=== PATIENT | male | born 1960 | race Caucasian/White ===

== ENCOUNTER → 2016-12-02 | Outpatient (CLI) | payer OTHER ==
--- NOTE | 2016-12-02 19:28 | DI ---
PA /LATERAL CHEST X-RAY, 12/02/2016 12:28 PM : Clinical History: Bronchitis after surgery. Previous Exam: None at this facility. There is no acute soft tissue or bony abnormality. Heart size is normal. Lungs are clear. Mediastinal structures are normal. There are no pulmonary nodules. Reading: Normal chest x-ray.
== END ==
LOC: MOB RAD 12:30
DX: J40 Bronchitis, not specified as acute or chronic (principal)
CPT/HCPCS: 71020

== ENCOUNTER 2018-11-11 12:31 | Observation (INO) ==
[2018-11-11] MEDS ORDERED: IPRATROPIUM/ALBUTEROL SULFATE 3 ML NEB NEB ONE (12:56)
[2018-11-11] MEDS ORDERED: Sodium Chloride 0.9% 1,000 ML PRIMARY IV ONE (12:56)
[2018-11-11 13:20] LABS: Hematocrit [HCT] 46.5 % (42.0-52.0); Hemoglobin [HGB] 15.7 g/dL (14.0-18.0); MEAN CORPUSCULAR HEMOGLOBIN 29.7 PG (27-31); MEAN CORPUSCULAR HGB CONC 33.8 g/dL (33-37); MEAN CORPUSCULAR VOLUME 88.1 FL (80-90); MEAN PLATELET VOLUME 8.4 FL (7.4-12.2); RED BLOOD COUNT 5.28 10^6/uL (4.70-6.10)
--- NOTE | 2018-11-11 13:23 | EKG ---
[address] [address] Measurements Intervals [place] Rate: 58 P: 27 WV: 142 QRS: 2 QRSD: 93 T: 33 QT: 389 QTc: 385 Interpretive Statements SINUS BRADYCARDIA RIGHT VENTRICULAR CONDUCTION DELAY Compared to ECG 09/27/2018 14:57:58 Sinus rhythm no longer present Electronically Signed On 11-11-18 14:19:21 MST by Rudy London [email or web address]
[2018-11-11 13:35] LABS: SERUM ALBUMIN 3.5 g/dL (3.5-4.8)
[2018-11-11 13:59] LABS: BAND NEUTROPHILS % 6 % (0-10); BASOPHILS % (MANUAL) 0 % (0-1); EOSINOPHILS % (MANUAL) 0 % (0-8); MONOCYTES % (MANUAL) 18 % (0-12); NEUTROPHILS % (MANUAL) 44 % (50-80)
[2018-11-11 14:00] LABS: PLATELET MORPHOLOGY COMMENT SEE COMMENTS (NORM); RBC MORPHOLOGY COMMENT NORMAL MORPHOLOGY (NORM); WBC MORPHOLOGY COMMENT SEE COMMENTS (NORM)
[2018-11-11 14:04] LABS: BLOOD UREA NITROGEN 27 mg/dL (7-22); BUN/CREATININE RATIO 38.57 (6-20)
[2018-11-11 14:18] LABS: BILIRUBIN,URINE NEGATIVE (NEG); CLARITY,URINE CLEAR (CLEAR); COLOR,URINE YELLOW (Y); GLUCOSE, URINE (UA) NEGATIVE (NEG); OCCULT BLOOD,URINE NEGATIVE (NEG); PH,URINE 5.5 (5.0-8.5); PROTEIN,URINE NEGATIVE (NEG)
[2018-11-11 14:19] LABS: URINE SAMPLE TYPE CLEAN CATCH URINE
--- NOTE | 2018-11-11 14:32 | DI ---
XR CXR 2VW PA/LAT,11/11/2018 12:56 PM: Clinical History: New cough and dyspnea. Previous Exam: September 24, 2018 Findings: PA and lateral views of the chest are obtained, and demonstrate new elevation of left hemidiaphragm n ot seen on the prior exam. There is no pneumothorax. The cardiomediastinum appears essentially stable. Impression: Interval elevation of the left hemidiaphragm worrisome in a patient with cancer for phrenic nerve inv olvement. Consider dedicated CT chest.
--- NOTE | 2018-11-11 16:37 | PDOC ---
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 After that he was supposed to start chemotherapy therapy. Based on the description it sounded like he had only radiation treatment to the brain and not to the chest yet. Last week he started to have cough, shortness of breath with phlegm production green no blood. There is occasional wheeze according to the . Because of all the symptoms he was brought to the ER. Apparently his oncologist did try Ceftin first then he switched him to nitrofurantoin. He came into the ER was given breathing treatment and the fluid and was admitted. He's not sure whether the treatment that he got in the ER made a difference yet. He thinks mostly the oxygen that helped him. Past Medical History Medical History: 1. Metastasis to the brain, squamous cell carcinoma with primary being the lung, had surgery with removal of the cerebellar tumor currently undergoing radiation treatment to the brain. The supposed to start chemotherapy therapy in 2 weeks after he is done with radiation treatment. Surgical History: 1. Removal of metastatic cerebellar tumor done in September Family History: Reviewed an Not Pertinent Past Social History: He used to chew, then he used E cigarettes for 2 years, rarely drinks more drugs. Tobacco Use: Former Smoker In the Past 12 Months, Have Used or Abuse Any of the Following Substance: None Alcohol Use: Rarely Medication / Allergies Home Medications: Home Medications Medication Instructions Recorded Confirmed Type hydrocodone 5 mg-acetaminophen 325 2 tab PO Q4-6H PRN #120 tab 10/18/18 11/11/18 Rx mg tablet Dexamethasone [Decadron] 4 mg PO BID 11/11/18 11/11/18 History Nitrofurantoin Monohyd/M-Cryst 100 mg PO BID 11/11/18 11/11/18 History [Macrobid 100 mg Capsule] Allergies/Adverse Reactions: Allergies Allergy/AdvReac Type Severity Reaction Status Date / Time tramadol Allergy Hives Verified 11/11/18 17:19 Exam - Vitals Vital Signs: Vital Signs Temperature 97.7 F Temperature Source Temporal Artery Scan Pulse Rate [Bilateral Radial] 64 Pulse Rate 78 Respiratory Rate 18 Blood Pressure [Left Arm] 123/86 Pulse Ox 100 Oxygen Delivery Method Room Air Height 5 ft 11 in Weight 158 lb - General General Appearance: No Acute Distress - Head Head Exam: Normal Inspection - Eye Eye Exam: POSITIVE: Normal Appearance - ENT ENT Exam: POSITIVE: Normal Exam - Neck Neck Exam: Normal Inspection - Respiratory Respiratory Exam: POSITIVE: Clear to Auscultation - Bilaterally - Cardiovascular Cardiovascular Exam: POSITIVE: RRR - GI/Abdominal GI/Abdominal Exam: POSITIVE: Normal Bowel Sounds, Non Tender, Non Distended, Soft, No Organomegaly - Rectal Rectal Exam: POSITIVE: Deferred - External Exam: POSITIVE: Deferred Exam: POSITIVE: Deferred - Extremities Extremities Exam: POSITIVE: Normal Inspection - Back Back Exam: POSITIVE: Normal Inspection - Neurological Neurological Exam: POSITIVE: Alert, Oriented x 3, CN II-XII Intact, No Facial Droop, Speech Intact / Clear, Moves All Extremities Equally - Psychiatric Psychiatric Exam: POSITIVE: Normal Affect - Integumentary Integumentary Exam: POSITIVE: Normal Color Results - Labs CBC and BMP: 11/11/18 13:10 11/11/18 13:10 - EKG Data -: EKG Interpreted by Me Rate: Bradycardia EKG Shows Normal: Sinus Rhythm - EKG Data When Compared to Previous EKG(s) There Are: Other (Sinus bradycardia.) Assessment and Plan - Patient Problems (1) Shortness of breath Current Visit: Yes Status: Acute Comment: This may be a result of her underlying cancer itself causing phrenic nerve paralysis, in addition to some element of bronchitis. I did tell him we'll do a CAT scan of his chest looking to see if there is any pneumonia if not then will treat him as possible COPD exacerbation but there is no guarantee that this will work this may may be a result of the cancer itself, I did explain that to him and his . In addition to the oxygen will put him on breathing violeta tment and will give him a dosage of steroid IV. He is on nitrofurantoin I think will switch it to Zithromax. 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 We'll try to speak with oncology tomorrow. Code(s): C79.31 - Secondary malignant neoplasm of brain
[2018-11-11] MEDS ORDERED: HYDROcodone-APAP 5 MG -325 MG TABLET PO PRN (17:19)
[2018-11-11] MEDS ORDERED: ALBUTEROL SULFATE 2.5 MG/3 ML NEB PRN (17:23)
[2018-11-11] MEDS ORDERED: LIDOCAINE W/ SODIUM BICARB 0.5 ML SYR SUBD PRN (17:23)
[2018-11-11] MEDS: methylPREDNISolone 125 MG/2 ML VIAL IVP SCH (18:58)
[2018-11-11] MEDS: IPRATROPIUM/ALBUTEROL SULFATE 3 ML NEB NEB SCH (19:17)
--- NOTE | 2018-11-11 19:46 | DI ---
CT CTA Chest Non-Coronary O 11/11/2018 5:17 PM History: [facility] ^shortness of breath, history of lung cancer Comparison: Chest x-ray from earlier the same day. Procedure: CT angiography of the pulmonary arteries was performed after the administration of 65 mL o f Isovue intravenous contrast. Findings: There is normal opacification of the pulmonary arteries with no evidence of filling defect. Evaluation of the lungs demonstrates an irregular lobulated mass in the anteromedial left lung. The m ass is peripherally located with local extension into the anterior mediastinum versus lymphadenopathy . The mass abuts the aortic arch, as well as the main and left main pulmonary arteries. There is no e ndobronchial lesion. There is elevation of the left hemidiaphragm with left lung base atelectasis, co ncerning for phrenic nerve compromise. Patchy areas of groundglass opacity are noted bilaterally. As well as anterior and superior lymphadenopathy, there are also enlarged supraclavicular lymph nodes . Additionally, there are enlarged right hilar lymph nodes. The aorta and branch vessels demonstrate normal course and caliber. Heart size is within normal limits with no pericardial effusion. There are atheromatous coronary artery calcifications. The thyroid exhibits normal CT morphology. The visualized upper abdominal structures are notable for lobular contour and thickening of the bilat eral adrenal glands. Cystic lesions in the left renal pelvis are favored to represent calyceal divert icula versus parapelvic cysts. The osseous structures are normal for age with multilevel degenerative endplate changes. There is no evidence of acute or healing rib fractures. There is mild bilateral gynecomastia. Impression: 1. No main or segmental pulmonary embolism. 2. Lobulated peripherally oriented left anteromedial lung mass with mediastinal extension versus lymp hadenopathy. 3. Patchy bilateral areas of groundglass attenuation. This is a nonspecific finding with a broad diff erential that includes atypical infection, hypersensitivity pneumonitis, and pulmonary edema in the a cute setting. Metastatic disease cannot be excluded. Clinical correlation is recommended with followu p 6 weeks following completion of therapy in order to to ensure resolution. 4. Anterior/superior mediastinal, right hilar, and supraclavicular lymphadenopathy. 5. Elevation of the left hemidiaphragm with left lung base atelectasis, concerning for phrenic nerve compromise. 6. Lobular contour and thickening of the bilateral adrenal glands, concerning for metastatic disease.
[2018-11-11] MEDS ORDERED: cefTRIAXone Inj 1 GM in Sodium Chloride 0.9% 100 ML IV SCH (20:00)
[2018-11-11] MEDS: Dexamethasone Tab 4 MG TABLET PO SCH (20:47)
[2018-11-12] MEDS: methylPREDNISolone 125 MG/2 ML VIAL IVP SCH ×2 (00:25→05:24)
--- NOTE | 2018-11-12 01:31 | PDOC ---
General Adult HPI - General Chief Complaint: Dyspnea Stated Complaint: weakness/cough/dyspnea Date Seen by Provider: 11/11/18 Time Seen by Provider: 12:45 Source: POSITIVE: Patient, Spouse, Old records Exam Limitations: POSITIVE: No limitations Nurse's Notes Reviewed & Considered: Yes - History of Present Illness Initial Comment: The patient is a 58-year-old male. He is brought to the emergency room by his father and his . Patient was recently diagnosed with lung cancer metastatic to the brain. This diagnosis was made last month. He has had neurosurgical procedures to remove some of the brain metastases. He has been receiving radiation therapy to his head for the last 3 weeks. Patient was seen by his radiation therapist in [place], Dr. Casey, earlier today. For several days the patient is had some cough and hoarseness. He's had progressive weakness and states he's had weight loss. Patient was advised by his radiation oncologist to come to the emergency room for evaluation. Patient recently completed a course of azithromycin, which was prescribed for him by his oncologist. No known fevers or chills. No head, chest or abdominal pain. No hemoptysis. He states he is somewhat short of breath. No pleuritic chest pain. No nausea, vomiting or diarrhea. Have you received a tetanus shot in the past 10 years?: Yes Body Location Affected: REPORTS: Chest Timing: REPORTS: Gradual, Getting Worse Duration: >1 week Severity: Moderate Quality: REPORTS: Other (Patient denies any pain anywhere) Context: REPORTS: Other (As above) Modifying Factors: improves with: Nothing Similar Symptoms Previously: No Recent Care Received: REPORTS: Recently Seen, Treated by MD (As above) Any Prior Injuries Related to Current Complaint?: No - Patient Home Medications Home Medications: Home Medications hydrocodone 5 mg-acetaminophen 325 mg tablet 2 tab PO Q4-6H PRN #120 tab 10/18/18 Dexamethasone [Decadron] 4 mg PO BID 11/11/18 Nitrofurantoin Monohyd/M-Cryst [Macrobid 100 mg Capsule] 100 mg PO BID 11/11/18 - Patient Allergies Allergies/Adverse Reactions: Allergies Allergy/AdvReac Type Severity Reaction Status Date / Time tramadol Allergy Hives Verified 11/11/18 17:19 Past Medical History - heen HEENT History: Denies History Cardiovascular History: Denies History Respiratory History: Shortness of Breath, Other (please comment) Additional Respiratory History: LUNG CANCER Gastrointestinal History: GERD Genitourinary History: Denies History Endocrine History: Denies History Musculoskeletal History: Back Injury, Osteoarthritis Prosthesis or Implant: No Additional Musculoskeletal History: PT STATES THAT HE BROKE HIS BACK NEARLY 30 YEARS AGO Neurological History: Denies History Blood Disorders: Denies History Psychiatric History: Denies History Male Reproductive History: Denies History Cancer History: Lung, Brain, Other (please comment) Cancer Treatment / Date(s) of Treatment: 2017- PRESENT In Past Year Been Physically Harmed or Verbally Threatened: No History of MDRO: No Tobacco Use: Former Smoker Type of alcohol normally used: Beer In the Past 12 Months, Have Used or Abuse Any Substance: None Previous Surgical History: Yes Type / Date of Surgery: PT STATES HE HAS HAD VARIOUS ORTHOPEDIC SURGERIES ON HIS HANDS AND ARMS. Anesthesia Reactions: No Malignant Hyperthermia: No Family History of Malignant Hyperthermia: No Significant Family History: No pertinent family hx Past Medical History Reviewed: Reviewed - No Changes ROS - Limitations ROS Limitations: No Limitations Constitution: REPORTS: Weakness Cardiovascular: REPORTS: Denies Cardiac Symptoms Respiratory: REPORTS: Cough Productive, Shortness Of Breath Neurological: REPORTS: Denies Neuro Symptoms Gastrointestinal: REPORTS: Denies GI Symptoms Endocrine: REPORTS: Denies Symptoms Musculoskeletal: REPORTS: Denies MS Symptoms Genitourinary: REPORTS: Denies Symptoms Eyes: REPORTS: Denies Symptoms ENT: REPORTS: Denies Symptoms Skin: REPORTS: Denies Skin Symptoms Lympathic: REPORTS: Denies Lympathic Symptoms Immunologic: POSITIVE: Denies Symptoms Psychiatric: POSITIVE: Denies Psych Symptoms General Adult Exam - General Appearance General Appearance: POSITIVE: Alert, Cooperative, No Acute Distress, No Evidence of Trauma - HEENT HEENT: POSITIVE: Head Inspection Nml, Eyes Inspection Nml, Ears Inspection Nml, Nose Inspection Nml, Oral/Dental Inspect. Nml, Pharynx Inspect. Nml, PERRL, EOMI - Pupils Pupil Size: 3 mm: Bilateral (PERRLA) - Neck Neck: POSITIVE: Normal Inspection, Thyroid Normal - Respiratory Respiratory: POSITIVE: No Respiratory Distress, Chest Non-Tender, Rhonchi. NEGATIVE: Breath Sounds Normal (Scattered rhonchi) - Cardiovascular Cardiovascular: POSITIVE: Regular Rate & Rhythm, No Murmur, No Gallop, PMI Normal Peripheral Pulses: Radial (R): 2+, Radial (L): 2+ - Abdomen Abdomen: Soft: (All Quadrants), Normal Bowel Sounds: (All Quadrants), Denies Tenderness: (All Quadrants), No Splenomegaly: (All Quadrants), No Hepatomegaly: (All Quadrants), No Guarding: (All Quadrants), No Rebound: (All Quadrants), No Palpable Pulse: (All Quadrants), No Palpabale Mass: (All Quadrants), No Distention: (All Quadrants), No Rigidity: (All Quadrants) - Back Back: POSITIVE: Normal Inspection - Skin Skin: POSITIVE: Normal Color, Warm, Dry, No Rash - Extremities Extremity: Non-Tender: (All Extremities), Normal ROM: (All Extremities), Normal Inspection: (All Extremities) - Neurological / Psychological Neurological: POSITIVE: Affect Apporpriate, Oriented X3, fisher hoop net Normal As Tested, Motor Normal, Sensation Normal General Adult Progress - Results Reviewed by me Xrays/CTs/US Reviewed by me: Yes Discussed with Radiologist: Yes Radiology Findings: No definite infiltrates. Interval elevation of left hemidiaphragm. Lab Results Reviewed by Me: Yes Lab Results:: Laboratory Results 11/11/18 11/11/18 11/11/18 12:57 12:57 13:10 WBC RBC Hgb Hct MCV MCH MCHC RDW Std Deviation RDW Coeff of Leigh Plt Count MPV Neutrophils % (Manual) Band Neutrophils % Lymphocytes % (Manual) Monocytes % (Manual) Eosinophils % (Manual) Basophils % (Manual) Metamyelocytes % Myelocytes % Promyelocytes % Blast Cells WBC Morphology Comment Plt Morphology Comment RBC Morph Comment D-Dimer Sodium Potassium Chloride Carbon Dioxide Anion Gap BUN Creatinine Estimated GFR BUN/Creatinine Ratio Glucose Calculated Osmolality Calcium Total Bilirubin AST ALT Alkaline Phosphatase Troponin I < 0.012 C-Reactive Protein 1.4 H NT-Pro-B Natriuret Pep 87.3 94.0 Total Protein Albumin Globulin Albumin/Globulin Ratio Ur Collection Type Urine Color Urine Clarity Urine pH Ur Specific [place] Urine Protein Urine Glucose (UA) Urine Ketones Urine Occult Blood Urine Nitrate Urine Bilirubin Urine Urobilinogen Ur Leukocyte Esterase Ur Culture Indicated? 11/11/18 11/11/18 11/11/18 13:10 13:10 13:10 WBC 11.92 H RBC 5.28 Hgb 15.7 Hct 46.5 MCV 88.1 MCH 29.7 MCHC 33.8 RDW Std Deviation 52.2 H RDW Coeff of Leigh 16.5 H Plt Count 231 MPV 8.4 Neutrophils % (Manual) 44 L Band Neutrophils % 6 Lymphocytes % (Manual) 32 Monocytes % (Manual) 18 H Eosinophils % (Manual) 0 Basophils % (Manual) 0 Metamyelocytes % Not Reportable Myelocytes % Not Reportable Promyelocytes % Not Reportable Blast Cells Not Reportable WBC Morphology Comment See comments Plt Morphology Comment See comments RBC Morph Comment Normal morphology D-Dimer 0.56 Sodium 137 Potassium 4.7 Chloride 103 Carbon Dioxide 27 Anion Gap 7 BUN 27 H Creatinine 0.7 Estimated GFR > 60 BUN/Creatinine Ratio 38.57 H Glucose 86 Calculated Osmolality 287.0 Calcium 9.1 Total Bilirubin 0.9 AST 19 L ALT 54 Alkaline Phosphatase 69 Troponin I C-Reactive Protein NT-Pro-B Natriuret Pep Total Protein 6.0 L Albumin 3.5 Globulin 2.5 Albumin/Globulin Ratio 1.40 Ur Collection Type Urine Color Urine Clarity Urine pH Ur Specific [place] Urine Protein Urine Glucose (UA) Urine Ketones Urine Occult Blood Urine Nitrate Urine Bilirubin Urine Urobilinogen Ur Leukocyte Esterase Ur Culture Indicated? 11/11/18 14:11 WBC RBC Hgb Hct MCV MCH MCHC RDW Std Deviation RDW Coeff of Leigh Plt Count MPV Neutrophils % (Manual) Band Neutrophils % Lymphocytes % (Manual) Monocytes % (Manual) Eosinophils % (Manual) Basophils % (Manual) Metamyelocytes % Myelocytes % Promyelocytes % Blast Cells WBC Morphology Comment Plt Morphology Comment RBC Morph Comment D-Dimer Sodium Potassium Chloride Carbon Dioxide Anion Gap BUN Creatinine Estimated GFR BUN/Creatinine Ratio Glucose Calculated Osmolality Calcium Total Bilirubin AST ALT Alkaline Phosphatase Troponin I C-Reactive Protein NT-Pro-B Natriuret Pep Total Protein Albumin Globulin Albumin/Globulin Ratio Ur Collection Type Clean catch urine Urine Color Yellow Urine Clarity Clear Urine pH 5.5 Ur Specific [place] 1.015 Urine Protein Negative Urine Glucose (UA) Negative Urine Ketones Negative Urine Occult Blood Negative Urine Nitrate Negative Urine Bilirubin Negative Urine Urobilinogen 1.0 Ur Leukocyte Esterase Negative Ur Culture Indicated? Culture not set CBC and BMP: 11/11/18 13:10 11/11/18 13:10 EKG Interpreted/Reviewed By Me:: Yes (normal) EKG Interpretation:: POSITIVE: Normal Sinus Rhythm, Normal Rate, Normal Intervals, Normal [place], Normal QRS, Normal ST/T - Patient's Progress Pain Medication Addressed: POSITIVE: Not Applicable School/Work Release Addressed: POSITIVE: Not Applicable Re-Examine Time: 15:35 Re-Examine Comment: Patient was given a nebulizer treatment with DuoNeb. Results of chest x-ray and electrocardiogram and laboratory tests discussed with patient and family. Patient is admitted for observation and hydration and further evaluation. Status: POSITIVE: Improved, Re-Examined (Patient feels subjectively better after receiving a liter of normal saline and a DuoNeb nebulizer treatment) Antibiotics Given: No - Consult Consult (If Yes, Name of Consulting MD & Time Called): Yes (Dr. Harmon, hosp italist, [id number]) Consulting MD will see pt:: POSITIVE: [facility] [place] [place] Admit Counseled: POSITIVE: Patient, Family, RE: Lab Results, RE: Radiology Results, RE: DX, RE: Need for F/U Patient Care Time - Estimated PCT Patient Care Time (In Minutes): 60 Vital Signs - VS Reviewed Vital Signs Reviewed: Yes Discharge Clinical Impression: Cough, Lung cancer metastatic to brain, Weakness generalized, Shortness of breath Discharge Disposition: Admit to Observation Condition: Fair Date Decision to Admit to Inpatient: 11/11/18 Time Decision to Admit to Inpatient: 15:35
[2018-11-12] MEDS: IPRATROPIUM/ALBUTEROL SULFATE 3 ML NEB NEB SCH ×2 (03:08→07:46)
[2018-11-12] MEDS ORDERED: PANTOPRAZOLE 40 MG TABLET PO SCH (07:00)
[2018-11-12 07:31] VITALS: BP 125/81; TEMP 97
[2018-11-12 07:48] VITALS: RESP 20
[2018-11-12] MEDS ORDERED: IPRATROPIUM/ALBUTEROL SULFATE 3 ML NEB NEB PRN (08:19)
--- NOTE | 2018-11-12 08:44 | DCSUMMARY ---
Hospitalization Summary Admit Date: 11/11/2018 Discharge Date: 11/12/18 Hospital Course: Discharge diagnoses 1. 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 RSV infection, ricci virus infection 3. History of Surgery for removal of for brain tumor in September 2018 4. Patchy bilateral areas of groundglass attenuation nonspecific possibly secondary to viral infection. 5. Elevation of the left hemidiaphragm likely secondary to phrenic nerve invo lvement by the tumor Hospital course This is a 58 years old male who was diagnosed last month with metastasis to the brain that proved to be squamous carcinoma with a primary being lung tumor, he had surgery for cerebellar tumor removal and he started radiation treatment in [place] about 3 weeks ago he needs to continue for about 2 more weeks. After that he is suppose to start chemotherapy. He came into the hospital because of cough, shortness of breath with phlegm production that started a week ago. There is no blood. There is occasional wheeze according to the . Because of all the symptoms he was brought to the ER. His oncologist tried Ceftin but then he had a rash so that was switched to nitrofurantoin. In the ER he was given fluids, breathing treatment and was admitted. We did a CT of his chest which showed no PE, Lobulated peripherally oriented left anteromedial mediastinal lung mass with mediastinal extension versus lymphadenopathy, patchy areas of groundglass attenuation nonspecific. Elevation of the left hemidiaphragm with left lung base atelectasis concern for phrenic nerve compromise, thickening of the bilateral adrenal gland. Respiratory panel showed positive test for RSV virus and the ricci virus. We put him on a breathing treatment, steroid and antibiotic for possible secondary bacterial infection. The next day he seems to be stable may be a little bit better. I did try to reach Dr. Casey however he is not at the office I spoke with his nurse and left my information. She did say that he is only getting radiation treatment to the brain and not to the chest yet. I think we'll discharge him home will give him a few days additional of Zithromax and tapering dose of prednisone. I did tell him I don't think there is additional benefit of him staying here in the hospital. He needs to get his treatment for his cancer. I did explain that to him to the and they are in agreement. Patient did qualify for oxygen and I did talk to him about the breathing treatment however he did not find those useful. Discharge instruction Diet regular Activity as tolerated Medications Current Medication(s) Medication Instructions Recorded Confirmed Type hydrocodone 5 mg-acetaminophen 325 2 tab PO Q4-6H PRN #120 tab 10/18/18 11/11/18 Rx mg tablet Dexamethasone [Decadron] 4 mg PO BID 11/11/18 11/11/18 History Azithromycin [Zithromax] 250 mg PO DAILY #4 tab 11/12/18 Rx Lansoprazole 30 mg PO DAILY #10 capsule. 11/12/18 Rx predniSONE Tab [Deltasone Tab] 10 mg PO DAILY #16 tab 11/12/18 Rx Follow-up with PCP 1-2 weeks, follow-up with the oncology tomorrow. Condition at discharge was stable for discharge Exam - Vitals Vital Signs: Vital Signs Temperature 97 F Temperature Source Temporal Artery Scan Pulse Rate [Pulse Oximeter] 95 Pulse Rate [Bilateral Radial] 61 Pulse Rate 82 Respiratory Rate 20 Blood Pressure [Right Arm] 125/81 Blood Pressure [Left Arm] 106/61 Pulse Ox 100 Oxygen Flow Rate .5 Oxygen Delivery Method Nasal Cannula Height 5 ft 11 in Weight 149 lb 9.6 oz - General General Appearance: No Acute Distress, Cooperative - Head Head Exam: Normal Inspection - Eye Eye Exam: POSITIVE: Normal Appearance - ENT ENT Exam: POSITIVE: Normal Exam - Neck Neck Exam: Normal Inspection - Respiratory Respiratory Exam: POSITIVE: Clear to Auscultation - Bilaterally - Cardiovascular Cardiovascular Exam: POSITIVE: RRR - GI/Abdominal GI/Abdominal Exam: POSITIVE: Normal Bowel Sounds, Non Tender, Non Distended, Soft - Rectal Rectal Exam: POSITIVE: Deferred - External Exam: POSITIVE: Deferred Exam: POSITIVE: Deferred - Extremities Extremities Exam: POSITIVE: Normal Inspection - Back Back Exam: POSITIVE: Normal Inspection - Neurological Neurological Exam: POSITIVE: Alert, Oriented x 3, CN II-XII Intact, No Facial Droop, Speech Intact / Clear - Psychiatric Psychiatric Exam: POSITIVE: Normal Affect Patient Problems - Patient Problem List (1) Shortness of breath Current Visit: Yes Status: Acute Code(s): R06.02 - Shortness of breath Category: Medical (2) 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
[2018-11-12 09:17] VITALS: O2SAT 94
[2018-11-12] MEDS: Dexamethasone Tab 4 MG TABLET PO SCH (09:59)
== END 2018-11-12 11:30 | disposition home or self-care (01) ==
LOC: MED/SURG 12:31 → ER 12:31 → MED/SURG 16:35
PROVIDERS: ADMIT Internal Medicine; ATTEND Internal Medicine

== ENCOUNTER 2019-05-12 15:37 | Observation (INO) ==
--- NOTE | 2019-05-12 16:56 | PDOC ---
Altered Mental Status HPI - General Chief Complaint: Altered Mental Status Stated Complaint: mental status changes Date Seen by Provider: 05/12/19 Time Seen by Provider: 16:47 Source: POSITIVE: Patient, Spouse, RN/MD Exam Limitations: POSITIVE: Clinical condition Nurse's Notes Reviewed & Considered: Yes - History of Present Illness Initial Comments: This is a well-developed, well-nourished, 58-year-old male, who presents today with altered mental status. I received a call earlier today from Mrs. Marci Leal, physician's senior administrative assistant for [facility] oncology, who provided much of the information I have available on this patient. Patient was initially diagnosed with brain cancer in October 2018 and at the same time developed bilateral pulmonary embolism. 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 He has received 2 cycles of Keytruda. His CEA has increased from 15-75 in the last month. He now has confusion, is alert only to person not place or time, and has become increasingly aggressive with his behavior particularly toward his caregiver at home who is his . This is a complete departure from normal for him with his stating he is normally very easy going and gentle. Timing: REPORTS: Gradual, Getting Worse Duration: Unknown Severity: Severe Character of AMS: REPORTS: Disoriented, Confused, Aggitated Context: REPORTS: Other (Squamous cell carcinoma of the lung with metastatic disease to the brain) Patient Normals: REPORTS: Confused, Poor Alertness, Disoriented to Time, Disoriented to Place, Walks Without Assist Similar Symptoms Previously: No Recent Care Received: REPORTS: Recently Seen, Treated by MD Any Prior Injuries Related to Current Complaint?: No - Patient Home Medications Home Medications: Home Medications Dexamethasone [Decadron] 2 mg PO DAILY 11/11/18 Apixaban [Eliquis] 5 mg PO BID 05/12/19 Megestrol Acetate 40 mg PO BID 05/12/19 Pembrolizumab [Keytruda] 200 mg IV .[id number] 05/12/19 Venlafaxine HCl ER [Effexor Xr] 75 mg PO DAILY 05/12/19 Zolpidem Tartrate [Ambien] 10 mg PO BEDTIME 05/12/19 oxyCODONE ER Tab [OxyCONTIN Tab] 10 mg PO QID PRN 05/12/19 - Patient Allergies Allergies/Adverse Reactions: Allergies Allergy/AdvReac Type Severity Reaction Status Date / Time tramadol Allergy Hives Verified 05/12/19 15:42 Past Medical History - heen HEENT History: Denies History Cardiovascular History: Denies History Respiratory History: Shortness of Breath, Home Oxygen Use, Other (please comment) Additional Respiratory History: LUNG CANCER, On 1.5LPM n/c O2 at home. Gastrointestinal History: GERD Genitourinary History: Denies History Endocrine History: Denies History Musculoskeletal History: Back Injury, Osteoarthritis Prosthesis or Implant: No Additional Musculoskeletal History: PT STATES THAT HE BROKE HIS BACK NEARLY 30 YEARS AGO Neurological History: Other (please comment) Additional Neurological History: Tumors in brain, truman lung ca. HEADACHES Blood Disorders: Denies History Psychiatric History: Depression History of Sexually Transmitted Diseases: No Cancer History: Lung, Brain, Other (please comment) Cancer Treatment / Date(s) of Treatment: 2017- PRESENT In Past Year Been Physically Harmed or Verbally Threatened: No History of MDRO: No Tobacco Use: Former Smoker In the Past 12 Months, Have Used or Abuse Any Substance: None Previous Surgical History: Yes Type / Date of Surgery: PT STATES HE HAS HAD VARIOUS ORTHOPEDIC SURGERIES ON HIS HANDS AND ARMS/CRANIOTOMY/VASECTOMY Anesthesia Reactions: No Malignant Hyperthermia: No Significant Family History: No pertinent family hx ROS - Limitations ROS Limitations: Clinical Condition (Due to the patient's altered mental status further review of systems is unavailable.) Altered Mental Physical Exam - General Appearance General Appearance: POSITIVE: No Acute Distress, No Evidence of Trauma - HEENT HEENT: POSITIVE: Head Inspection Nml, Eyes Inspection Nml, Ears Inspection Nml, Nose Inspection Nml, Oral/Dental Inspect. Nml, Pharynx Inspect. Nml, PERRL, EOMI - Pupil Size Pupil Size: 4 mm: Bilateral - Neuro/Psych Neurological: POSITIVE: Confusion Cranial Nerves: POSITIVE: Normal As Tested, No Evidence of Acute CVA Cerebellar: POSITIVE: Normal As Tested Peripheral Exam: POSITIVE: No Motor Deficits, No Sensory Deficits, Reflexes Normal Reflexes: Patellar (R): 4+, Patellar (L): 4+, Radial (R): 4+, Radial (L): 4+ - Neck Neck: POSITIVE: Supple, Non Tender - Respiratory Respiratory: POSITIVE: No Respiratory Distress, Breath Sounds Normal - Cardiovascular CVS: POSITIVE: Regular Rate and Rhythm, Heart Sounds Normal Peripheral Pulses: Radial (R): 4+, Radial (L): 4+ - Abdomen Abdomen: Soft: (All Quadrants), Normal Bowel Sounds: (All Quadrants), Denies Tenderness: (All Quadrants), No Splenomegaly: (All Quadrants), No Hepatomegaly: (All Quadrants), No Guarding: (All Quadrants), No Rebound: (All Quadrants), No Palpable Pulse: (All Quadrants), No Palpabale Mass: (All Quadrants), No Distention: (All Quadrants), No Rigidity: (All Quadrants) - Skin Skin: POSITIVE: Normal for Race, No Rash, Warm, Dry - Extremities Extremity: Non-Tender: (All Extremities), Normal ROM: (All Extremities), Normal Inspection: (All Extremities), Pelvis Stable: (All Extremities) Altered Mental Status - Results Reviewed By Me Xrays/CTs/US Reviewed: Yes Discussed with Radiologist: Yes Lab Results Reviewed by Me: Yes CBC and BMP: 05/12/19 16:22 05/12/19 16:22 Lab Results:: Laboratory Results 05/12/19 05/12/19 05/12/19 16:22 16:22 16:22 WBC 9.38 RBC 3.70 L Hgb 12.3 L Hct 36.9 L MCV 99.7 H MCH 33.2 H MCHC 33.3 RDW Std Deviation 49.6 RDW Coeff of Leigh 13.8 Plt Count 324 MPV 9.2 Immature Gran % (Auto) 0.3 Neut % (Auto) 78.8 Lymph % (Auto) 14.2 Emmons % (Auto) 6.5 Eos % (Auto) 0.1 Baso % (Auto) 0.1 Immature Gran # (Auto) 0.03 Neut # (Auto) 7.39 Lymph # (Auto) 1.33 Emmons # (Auto) 0.61 Eos # (Auto) 0.01 Baso # (Auto) 0.01 WBC Morphology Comment Normal morphology Plt Morphology Comment Normal morphology RBC Morph Comment Normal morphology ESR 80 H PT 20.2 H INR 1.75 Sodium 142 Potassium 3.9 Chloride 108 Carbon Dioxide 22 L Anion Gap 12 BUN 23 H Creatinine 0.7 Estimated GFR > 60 BUN/Creatinine Ratio 32.85 H Glucose 101 Calculated Osmolality 297.0 H Calcium 9.4 Magnesium 2.2 Total Bilirubin 0.6 AST 81 H ALT 97 H Alkaline Phosphatase 202 H C-Reactive Protein 2.4 H NT-Pro-B Natriuret Pep 94.5 Total Protein 7.4 Albumin 4.1 Globulin 3.3 Albumin/Globulin Ratio 1.20 L TSH 05/12/19 16:22 WBC RBC Hgb Hct MCV MCH MCHC RDW Std Deviation RDW Coeff of Leigh Plt Count MPV Immature Gran % (Auto) Neut % (Auto) Lymph % (Auto) Emmons % (Auto) Eos % (Auto) Baso % (Auto) Immature Gran # (Auto) Neut # (Auto) Lymph # (Auto) Emmons # (Auto) Eos # (Auto) Baso # (Auto) WBC Morphology Comment Plt Morphology Comment RBC Morph Comment ESR PT INR Sodium Potassium Chloride Carbon Dioxide Anion Gap BUN Creatinine Estimated GFR BUN/Creatinine Ratio Glucose Calculated Osmolality Calcium Magnesium Total Bilirubin AST ALT Alkaline Phosphatase C-Reactive Protein NT-Pro-B Natriuret Pep Total Protein Albumin Globulin Albumin/Globulin Ratio TSH 1.18 EKG Interpretation:: POSITIVE: Normal Sinus Rhythm, Normal ST/T - Patient's Progress Pain Medication Addressed: POSITIVE: Yes Re-Examine Time:: 19:20 Status: POSITIVE: Improved MDM / ED Course: Patient was evaluated, an IV started, blood drawn and sent to the lab for studies, EKG, CT of his head, CT chest, and CT of abdomen and pelvis were obtained. Findings: CBC shows an anemia with hemoglobin of 12.3 and hematocrit of 36.9, white count and platelets are normal. Inflammatory markers show ESR of 80 and CRP of 2.4. Reticulocyte studies show a PT of 20.2 and an INR 1.75. CMP shows abnormalities with a CO2 of 22, BUN of 23, AST of 81, ALT of 97, alkaline phosphatase is 202, the remainder the panel is normal. Magnesium is 2.2. BNP is 94.5. TSH is 1.18. EKG, per my interpretation, shows a sinus arrhythmia with rate of 96 beats a minute no ST changes. CT of his head shows metastatic disease present with no significant change since his last CT scan. Assessment: Mental status changes Plan: Patient being admitted by the hospitalist. - Consult Counseled: POSITIVE: Patient, Family, RE: Lab Results, RE: Radiology Results, RE: DX, RE: Need for F/U - CAP/CVA/Syncope CAP: POSITIVE: Chest CT CVA/Syncope: POSITIVE: EKG Patient Care Time - Estimated PCT Patient Care Time (In Minutes): 75 Vital Signs - VS Reviewed Vital Signs Reviewed: Yes Discharge Clinical Impression: Change in mental status Discharge Disposition: Admit to Inpatient Condition: Stable Patient Problem(s) Reviewed: Yes Date Decision to Admit to Inpatient: 05/12/19 Time Decision to Admit to Inpatient: 20:08
[2019-05-12] MEDS ORDERED: ONDANSETRON 4 MG/2 ML VIAL IVP ONE (16:58)
[2019-05-12] MEDS ORDERED: KETOROLAC 15 MG/1 ML VIAL IVP ONE (16:58)
[2019-05-12] MEDS ORDERED: LORazepam 2 MG/1 ML VIAL IVP ONE (16:58)
[2019-05-12] MEDS ORDERED: Sodium Chloride 0.9% 1,000 ML PRIMARY IV SCH (17:00)
[2019-05-12 17:04] LABS: BASOPHILS # (AUTO) 0.01 10*3/UL; BASOPHILS % (AUTO) 0.1 % (0-1); EOSINOPHILS # (AUTO) 0.01 10*3/UL; EOSINOPHILS % (AUTO) 0.1 % (0-8); Hematocrit [HCT] 36.9 % (42.0-52.0); Hemoglobin [HGB] 12.3 g/dL (14.0-18.0); LYMPHOCYTES # (AUTO) 1.33 10*3/uL; MEAN CORPUSCULAR HGB CONC 33.3 g/dL (33-37); MEAN CORPUSCULAR VOLUME 99.7 FL (80-90); MEAN PLATELET VOLUME 9.2 FL (7.4-12.2); MONOCYTES # (AUTO) 0.61 10*3/UL (0.3-0.8); MONOCYTES % (AUTO) 6.5 % (5-15); NEUTROPHILS # (AUTO) 7.39 10*3/UL; NEUTROPHILS % (AUTO) 78.8 % (50-80)
[2019-05-12 17:06] LABS: PLATELET MORPHOLOGY COMMENT NORMAL MORPHOLOGY (NORM); RBC MORPHOLOGY COMMENT NORMAL MORPHOLOGY (NORM); WBC MORPHOLOGY COMMENT NORMAL MORPHOLOGY (NORM)
[2019-05-12 17:15] LABS: BLOOD UREA NITROGEN 23 mg/dL (7-22); BUN/CREATININE RATIO 32.85 (6-20); SERUM ALBUMIN 4.1 g/dL (3.5-4.8)
[2019-05-12 17:44] LABS: Erythrocyte Sediment Rate 80 MM/HR (0-15)
[2019-05-12] MEDS ORDERED: DEXAMETHASONE PF 10 MG/1 ML VIAL IVP ONE (17:48)
--- NOTE | 2019-05-12 18:30 | EKG ---
[address] [address] Measurements Intervals [place] Rate: 96 P: 91 OH: 147 QRS: 31 QRSD: 94 T: -10 QT: 284 QTc: 338 Interpretive Statements SINUS RHYTHM WITH OCCASIONAL SUPRAVENTRICULAR PREMATURE COMPLEXES NONSPECIFIC T-WAVE ABNORMALITY Compared to ECG 11/11/2018 13:23:13 T-wave abnormality now present Sinus bradycardia no longer present Electronically Signed On 05-13-19 08:06:41 MDT by Rudy London [email or web address]
--- NOTE | 2019-05-12 18:48 | DI ---
EXAM: CT Head Without Intravenous Contrast CLINICAL HISTORY: ITS.REASON ams Physician Notes: Tech Comments: TECHNIQUE: Axial computed tomography images of the head/brain without intravenous contrast. COMPARISON: 01/13/19 FINDINGS: Brain: No intracranial hemorrhage. Involutional changes. Scattered white matter edema/ hypoattenuations. Presumed partly peripherally calcified lesion centered in the left basal ganglia region, measuring up roughly 15 mm, similar to prior exam. MRI can further assess as warranted. Presumed cystic encephalomalacia in the left cerebellum. Ventricles: No ventriculomegaly. Bones/joints: Surgical changes in the occipital skull Soft tissues: Unremarkable. Sinuses: Debris in the sphenoid sinus. Retention cyst/polyp in the right maxillary sinus. Mastoid air cells: No mastoid effusion. IMPRESSION: No intracranial hemorrhage. No significant change since the prior exam.
--- NOTE | 2019-05-12 19:52 | DI ---
EXAM: CT Chest With Intravenous Contrast CLINICAL HISTORY: ITS.REASON sob Physician Notes: Tech Comments: TECHNIQUE: Axial computed tomography images of the chest with intravenous contrast. COMPARISON: 11/11/18. FINDINGS: Lungs: Elevation of the left diaphragm. Left basilar atelectasis/consolidation. Pleural space: Unremarkable. No pneumothorax. No effusion. Heart: Minimal anterior pericardial thickening Cardiomegaly. Thyroid: 5 mm low-attenuation focus in the left lobe of the thyroid gland. Bones/joints: No acute fracture. Soft tissues: Unremarkable. Vasculature: Unremarkable. No thoracic aortic aneurysm. Lymph nodes: No enlarged lymph nodes. Marked decrease in the previously noted mediastinal and hilar adenopathy. Small amount of poorly defined soft tissue remains in the anterior mediastinum. IMPRESSION: Elevation of the left diaphragm. Left basilar atelectasis/consolidation.
--- NOTE | 2019-05-12 20:00 | DI ---
EXAM: CT Abdomen and Pelvis With Intravenous Contrast CLINICAL HISTORY: ITS.REASON metastatic lung ca Physician Notes: Tech Comments: TECHNIQUE: Axial computed tomography images of the abdomen and pelvis with intravenous contrast. COMPARISON: No relevant prior studies available. FINDINGS: Lung bases: Elevation of the left diaphragm. Atelectasis/consolidation at the left lung base. Heart: Mild anterior pericardial thickening. ABDOMEN: Liver: Numerous low-attenuation lesions throughout the liver worrisome for metastasis. Gallbladder and bile ducts: No calcified stones. No ductal dilation. Pancreas: Unremarkable. Spleen: See below. Adrenals: 16mm left adrenal nodule. Kidneys and ureters: Left parapelvic renal cysts. Too small to characterize low-attenuation foci in the kidneys. Stomach and bowel: No yovanny mural thickening. Nonobstructive bowel gas pattern. PELVIS: Appendix: No findings to suggest acute appendicitis. Bladder: Unremarkable. Reproductive: Unremarkable. ABDOMEN and PELVIS: Intraperitoneal /retroperitoneal space: Small amount of fluid near the left kidney and spleen. Bones/joints: Chronic appearing compression deformity of L4. Soft tissues: Unremarkable. Vasculature: Unremarkable. No abdominal aortic aneurysm. Lymph nodes: No enlarged lymph nodes. IMPRESSION: Numerous low-attenuation lesions throughout the liver worrisome for metastasis.
[2019-05-12] MEDS ORDERED: ACETAMINOPHEN 325 MG TABLET PO PRN (21:31)
[2019-05-12] MEDS ORDERED: LIDOCAINE W/ SODIUM BICARB 0.5 ML SYR SUBD PRN (21:31)
[2019-05-12] MEDS ORDERED: CALCIUM CARBONATE 500 MG (TUMS) CHEWABLE TABLET PO PRN (21:31)
[2019-05-12] MEDS ORDERED: DOCUSATE 100 MG CAPSULE PO PRN (21:31)
[2019-05-12] MEDS ORDERED: ONDANSETRON 4 MG/2 ML VIAL IVP PRN (21:31)
--- NOTE | 2019-05-12 21:31 | PDOC ---
HPI - History of Present Illness Date of Service: 05/12/19 Time of Service: 22:00 Chief Complaint: Progressively worsening confusion the last month History of Present Illness: This is a 58 years old male with medical history significant for history of squamous cell carcinoma of the lung with metastasis to the brain S/P surgery, radiation treatment and treatment with keytruda, he was sent to the ER from the oncolgy office in [place] because of progressive memory changes and confusion the last month worse the last week. He is been more aggressive to his and there is fluctuation in his behavior. He had multiple CT in the ER which showed numerous lesions in the Liver which is new according to the . He was admitted to the hospital because of the confusion . Based on my discussion with the and daughter they're looking not looking for aggressive treatment. There is no meaningful information can Be obtained from the patient as he is confused. He is calm though and cooperative. Information is mainly obtained from reviewing the notes and talking to the and the daughter.He denied pain when I saw him. Past Medical History Medical History: 1. Metastasis to the brain, squamous cell carcinoma with primary being the lung, had surgery with removal of the cerebellar tumor curr ently had radiation treatment to the brain. Had treatment also with keytruda. 2. Bilateral pulmonary embolism in December 2018 on eliquis Surgical History: 1. 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 Tobacco Use: Former Smoker In the Past 12 Months, Have Used or Abuse Any of the Following Substance: None Medication / Allergies Home Medications: Home Medications Medication Instructions Recorded Confirmed Dexamethasone [Decadron] 2 mg PO DAILY 11/11/18 05/12/19 Apixaban [Eliquis] 5 mg PO BID 05/12/19 05/12/19 Megestrol Acetate 40 mg PO BID 05/12/19 05/12/19 Pembrolizumab [Keytruda] 200 mg IV .[id number] 05/12/19 05/12/19 Venlafaxine HCl ER [Effexor Xr] 75 mg PO DAILY 05/12/19 05/12/19 Zolpidem Tartrate [Ambien] 10 mg PO BEDTIME 05/12/19 05/12/19 oxyCODONE ER Tab [OxyCONTIN Tab] 10 mg PO QID PRN 05/12/19 05/12/19 Allergies/Adverse Reactions: Allergies Allergy/AdvReac Type Severity Reaction Status Date / Time tramadol Allergy Hives Verified 05/12/19 15:42 Review of Systems - Review of Systems ROS Unobtainable: Due to Mental Status Exam - Vitals Vital Signs: Vital Signs Temperature 97.5 F Temperature Source Temporal Artery Scan Pulse Rate [Pulse Oximeter 101 Right] Respiratory Rate 17 Blood Pressure [Left Arm] 126/88 Pulse Ox 97 Oxygen Delivery Method Room Air Height 5 ft 11 in Weight 190 lb - General General Appearance: No Acute Distress, Cooperative - Head Head Exam: Normal Inspection - Eye Eye Exam: POSITIVE: Normal Appearance - ENT ENT Exam: POSITIVE: Normal Exam - Respiratory Respiratory Exam: POSITIVE: Clear to Auscultation - Bilaterally - Cardiovascular Cardiovascular Exam: POSITIVE: RRR - GI/Abdominal GI/Abdominal Exam: POSITIVE: Normal Bowel Sounds, Non Tender, Non Distended, Soft, No Organomegaly - Rectal Rectal Exam: POSITIVE: Deferred - External Exam: POSITIVE: Deferred - Extremities Extremities Exam: POSITIVE: Normal Inspection - Back Back Exam: POSITIVE: Normal Inspection - Neurological Neurological Exam: POSITIVE: Alert, Moves All Extremities Equally Additional Neurological Exam Details: Patient could not tell me the day or the month or the year. He couldn't count to 10. He couldn't tell me his date of . No meaningful information can be obtained from the patient. - Psychiatric Psychiatric Exam: POSITIVE: Flat Affect - Integumentary Integumentary Exam: POSITIVE: Normal Color Results - Labs CBC and BMP: 05/12/19 16:22 05/12/19 16:22 - EKG Data -: EKG Interpreted by Me Rate: Normal EKG Shows Normal: Sinus Rhythm - EKG Data When Compared to Previous EKG(s) There Are: Other (EKG showed normal sinus rhythm with supraventricular premature beats and nonspecific changes.) - Imaging Status: Report Reviewed by Me (CT head No intracranial hemorrhage. No significant change since the prior exam. CT chest Elevation of the left diaphragm. Left basilar atelectasis/consolidation. Numerous CT abdomen low- attenuation lesions throughout the liver worrisome for metastasis.) Assessment and Plan - Patient Problems (1) 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 Current Visit: No Status: Acute Comment: Based on my understanding from the and the daughter he is not showing response to treatment will try to verify that with the oncologist, they are looking more for symptomatic treatment based on my understanding. They also said that his care is becoming difficult because of the confusion and apparently he was aggressive towards the . They didn't sleep last night. I think will write for lorazepam for agitation in case he needs it. Will get more information from the oncologist and will speak with the habitat conservation planner about where to go from here. They are looking for more intermediate placement. He is DO NOT RESUSCITATE. Code(s): C79.31 - Secondary malignant neoplasm of brain (2) History of pulmonary embolism Current Visit: Yes Status: Acute Comment: For now will continue with the eliquis until we get more information. Code(s): Z86.711 - Personal history of pulmonary embolism
[2019-05-12] MEDS ORDERED: LORazepam 1 MG TABLET PO PRN (21:41)
[2019-05-12] MEDS ORDERED: oxyCODONE IR Tab 5 MG TAB PO PRN (22:30)
[2019-05-13] MEDS ORDERED: MEGESTROL ACETATE 40 MG PO SCH (09:00)
[2019-05-13] MEDS: VENLAFAXINE XR 75 MG CAP PO SCH (09:59)
[2019-05-13] MEDS: Apixaban 5 MG TABLET PO SCH ×2 (09:59→20:29)
--- NOTE | 2019-05-13 17:11 | PDOC(PROG) ---
Date of Service: 05/13/19 Time of Service: 17:07 Interval History: Patient seen and evaluated earlier today, discussed with . The patient is quite confused, cannot provide any history of current events, time, or situation. Minimally oriented to self. The wishes to seek treatment for primary symptoms of pain and discomfort only. Because of the patient's tendency to wander, he is not safe at home and the patient's is unable to care for him at home. She is hopeful for placement in [facility] for treatment of primary symptoms of pain and discomfort only. Objective : Data - Labs CBC and BMP: 05/12/19 16:22 05/12/19 16:22 Objective : Exam - General General Appearance: No Acute Distress Additional General Exam Details: Vital Signs - Last Taken Temperature 98.1 F 05/13/19 16:29 Pulse Rate 73 05/13/19 16:29 Respiratory Rate 20 05/13/19 16:29 Blood Pressure 111/77 05/13/19 16:29 Pulse Ox 98 05/13/19 16:29 - Respiratory Respiratory Exam: Breathing Non Labored, Decreased Breath Sounds - Cardiovascular Cardiovascular Exam: RRR, No Clicks, No Gallops, No Rubs - GI/Abdominal GI/Abdominal Exam: Non Tender, Non Distended, Soft - Extremities Extremities Exam: No Edema Present, No Cyanosis Present - Neurological Neurological Exam: Alert, Normal Gait, No Facial Droop, Speech Intact / Clear, Moves All Extremities Equally, Altered Assessment and Plan - Patient Problems (1) 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 Current Visit: Yes Status: Acute Code(s): C79.31 - Secondary malignant neoplasm of brain (2) History of pulmonary embolism Current Visit: Yes Status: Acute Code(s): Z86.711 - Personal history of pulmonary embolism (3) Lung cancer Current Visit: Yes Status: Acute Code(s): C34.90 - Malignant neoplasm of unspecified part of unspecified bronchus or lung Qualifiers: Laterality: unspecified laterality Lung location: unspecified part of lung Qualified Code(s): C34.90 - Malignant neoplasm of unspecified part of unspecified bronchus or lung - Assessment / Plan Additional Assessment/Plan Details: The patient is not seeking any further treatment, whether surgical, radiation, or chemotherapy related. His wants to pursue either hospice care or care at [facility] facility with focus on treatment of primary symptoms of pain and discomfort only. There is no safe discharge option as the patient is not safe at home with is wandering in his tendencies to be impulsive at this time. She states that his pain is been very difficult to control at home as well. Pursuing placement as discussed above. Treatment of pain.
[2019-05-13] MEDS: oxyCODONE ER 10 MG TAB PO SCH ×2 (17:28→20:30)
[2019-05-14] MEDS: VENLAFAXINE XR 75 MG CAP PO SCH (10:10)
[2019-05-14] MEDS: oxyCODONE ER 10 MG TAB PO SCH ×4 (10:10→21:14)
[2019-05-14] MEDS: Apixaban 5 MG TABLET PO SCH ×2 (10:10→21:15)
--- NOTE | 2019-05-14 15:00 | PDOC(PROG) ---
Date of Service: 05/14/19 Time of Service: 14:56 Interval History: Seen and evaluated earlier. Discussed with . She feels that scheduled pain medications has definitely improved the patient's pain control. She would be interested in pursuing [facility]iary placement in [place] if a bed does not open up in [place] soon. Objective : Data - Labs CBC and BMP: 05/12/19 16:22 05/12/19 16:22 Objective : Exam - General General Appearance: No Acute Distress, Cooperative - Eye Eye Exam: No Scleral Icterus - ENT ENT Exam: Mucous Membranes Moist - Neck Neck Exam: JVP is not Raised - Respiratory Respiratory Exam: Breathing Non Labored, Coarse Breath Sounds - Cardiovascular Cardiovascular Exam: RRR, No Murmur, No Clicks, No Gallops, No Rubs, No JVD - GI/Abdominal GI/Abdominal Exam: Normal Bowel Sounds, Non Tender, Non Distended, Soft - Extremities Extremities Exam: No Clubbing Present, No Edema Present, No Cyanosis Present - Neurological Neurological Exam: Alert, No Facial Droop, Speech Intact / Clear, Moves All Extremities Equally, Altered Assessment and Plan - Patient Problems (1) 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 Current Visit: Yes Status: Acute Code(s): C79.31 - Secondary malignant neoplasm of brain (2) Lung cancer Current Visit: Yes Status: Acute Code(s): C34.90 - Malignant neoplasm of unspecified part of unspecified bronchus or lung Qualifiers: Laterality: left Lung location: lower lobe of lung Qualified Code(s): C34 .32 - Malignant neoplasm of lower lobe, left bronchus or lung (3) History of pulmonary embolism Current Visit: Yes Status: Acute Code(s): Z86.711 - Personal history of pulmonary embolism - Assessment / Plan Additional Assessment/Plan Details: We are treating primary symptoms of pain and discomfort only. Pursuing placement as the patient is not safe at home. Referral call placed to [facility] in [place]. Still awaiting possible that a [facility]. No change to medications at this time.
[2019-05-15] MEDS: oxyCODONE ER 10 MG TAB PO SCH ×4 (08:57→20:59)
[2019-05-15] MEDS: VENLAFAXINE XR 75 MG CAP PO SCH (08:57)
[2019-05-15] MEDS: Apixaban 5 MG TABLET PO SCH ×2 (08:57→20:59)
--- NOTE | 2019-05-15 16:13 | PDOC(PROG) ---
Date of Service: 05/15/19 Time of Service: 16:07 Interval History: Patient seen and evaluated earlier. Discussed with . Still awaiting placement for treatment of primary symptoms of pain and discomfort/palliative care. It is not safe to discharge as patient home, again he wanders, is confused from brain metastasis, keytruda was going to be continued, but had such bad confusion and adverse effects that they elected to stop therapy altogether. His pain has been under much better control since scheduling oxycodone. He has not been aggressive here. He does wander and likes to ambulate. Poor by mouth intake. Objective : Data - Labs CBC and BMP: 05/12/19 16:22 05/12/19 16:22 Additional Lab Results: CEA level is pending Objective : Exam - General General Appearance: No Acute Distress, Cooperative Additional General Exam Details: Vital Signs - Last Taken Temperature 97.4 F 05/15/19 11:14 Pulse Rate 96 05/15/19 11:14 Respiratory Rate 17 05/15/19 11:14 Blood Pressure 95/72 05/15/19 11:14 Pulse Ox 97 05/15/19 11:14 Confused in terms of current situation. Follows very basic commands such as taking deep breaths on exam. - Eye Eye Exam: No Scleral Icterus - ENT ENT Exam: Mucous Membranes Moist - Neck Neck Exam: JVP is not Raised - Respiratory Respiratory Exam: Breathing Non Labored, Decreased Breath Sounds - Cardiovascular Cardiovascular Exam: RRR, No Murmur, No Clicks, No Gallops, No Rubs, No JVD - GI/Abdominal GI/Abdominal Exam: Normal Bowel Sounds, Non Tender, Non Distended, Soft - Extremities Extremities Exam: No Clubbing Present, No Edema Present, No Cyanosis Present - Neurological Neurological Exam: Alert, Speech Intact / Clear, Moves All Extremities Equally, Altered Assessment and Plan - Patient Problems (1) 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 Current Visit: Yes Status: Acute Code(s): C79.31 - Secondary malignant neoplasm of brain (2) Lung cancer Current Visit: Yes Status: Acute Code(s): C34.90 - Malignant neoplasm of unspecified part of unspecified bronchus or lung Qualifiers: Laterality: left Lung location: lower lobe of lung Qualified Code(s): C34.32 - Malignant neoplasm of lower lobe, left bronchus or lung (3) History of pulmonary embolism Current Visit: Yes Status: Acute Code(s): Z86.711 - Personal history of pulmonary embolism (4) Neoplasm related pain Current Visit: Yes Status: Acute Code(s): G89.3 - Neoplasm related pain (acute) (chronic) (5) Liver metastasis Current Visit: Yes Status: Acute Code(s): C78.7 - Secondary malignant neoplasm of liver and intrahepatic bile duct - Assessment / Plan Additional Assessment/Plan Details: Continue treatment of primary symptoms of pain and discomfort. Still awaiting placement, hopefully a half-way facility will be willing to accept the patient for continued treatment of pain and discomfort symptoms. Because of his wandering, hospice Hospital is not really a good option at all. Discussed with in depth. We are looking for placement in [place], she is okay with that, but would like the patient wait listed here in [place] because she is worried about driving in the winter to visit her .
[2019-05-16] MEDS: oxyCODONE ER 10 MG TAB PO SCH ×4 (09:11→21:59)
[2019-05-16] MEDS: VENLAFAXINE XR 75 MG CAP PO SCH ×2 (09:12→11:11)
[2019-05-16] MEDS: Apixaban 5 MG TABLET PO SCH ×2 (09:12→21:59)
--- NOTE | 2019-05-16 15:20 | PDOC(PROG) ---
Date of Service: 05/16/19 Time of Service: 15:16 Interval History: Seen, evaluated earlier. Discussed with , discussed with case management. It appears we have placement here at [facility]. However they will not be able to take the patient until Sunday. Patient has had worsened pain. This is in particular in the right upper quadrant, midepigastric area and also on deep breathing. Objective : Data - Labs CBC and BMP: 05/12/19 16:22 05/12/19 16:22 Additional Lab Results: 05/14/19 16:23 Carcinoembryonic Ag 184.7 H Note that his CEA in the office was 16 in the oncology office on my review of their notes. Objective : Exam - General General Appearance: No Acute Distress, Cooperative Additional General Exam Details: Vital Signs - Last Taken Temperature 97.9 F 05/16/19 12:12 Pulse Rate 98 05/16/19 12:12 Respiratory Rate 18 05/16/19 12:12 Blood Pressure 92/63 05/16/19 12:12 Pulse Ox 96 05/16/19 12:12 - Eye Eye Exam: No Scleral Icterus - ENT ENT Exam: Mucous Membranes Moist - Respiratory Respiratory Exam: Clear to Auscultation - Bilaterally, Breathing Non Labored Additional Respiratory Exam Details: Complains of pain with deep breaths - Cardiovascular Cardiovascular Exam: RRR, No Murmur, No Clicks, No Gallops, No Rubs, No JVD - GI/Abdominal GI/Abdominal Exam: Non Distended, Soft, Positive for RUQ Pain, Hepatomegaly - Extremities Extremities Exam: No Clubbing Present, No Edema Present, No Cyanosis Present - Neurological Neurological Exam: Alert, Normal Gait, No Facial Droop, Speech Intact / Clear, Moves All Extremities Equally, Altered Assessment and Plan - Patient Problems (1) Neoplasm related pain Current Visit: Yes Status: Acute Code(s): G89.3 - Neoplasm related pain (acute) (chronic) (2) Liver metastasis Current Visit: Yes Status: Acute Code(s): C78.7 - Secondary malignant neoplasm of liver and intrahepatic bile duct (3) 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 This is based on all the same reasons that have been well documented through the hospital stay. Wanderer. No aggression here. Increased neoplastic-related pain, I will increase frequency of pain medications. His liver is a little larger and feels harder on examination. He is tender in the right upper quadrant and tender when he takes a deep breath. Discussed with case management, discussed with , they are all in agreement with the plan. Likely disposition to [facility] and I've spoken with Dr. Mckeon and he is okay with admission there, and we'll likely treat primary symptoms of pain and discomfort only. The patient's condition is terminal. Eileen pina less than 6 months to live.
[2019-05-17] MEDS: oxyCODONE ER 10 MG TAB PO SCH ×2 (09:25→13:55)
[2019-05-17] MEDS: VENLAFAXINE XR 75 MG CAP PO SCH (09:25)
[2019-05-17] MEDS: Apixaban 5 MG TABLET PO SCH ×2 (09:25→21:36)
--- NOTE | 2019-05-17 15:13 | PDOC(PROG) ---
Date of Service: 05/17/19 Time of Service: 15:07 Interval History: seen, evaluated earlier, discussed with at bedside. no differing complaints of pain. very confused, not combative. thinks he seems okay, very saddened by his health and knoing he is dying of cancer. placement in [facility] Sunday Objective : Data - Labs CBC and BMP: 05/12/19 16:22 05/12/19 16:22 Objective : Exam - General General Appearance: No Acute Distress, Cooperative Additional General Exam Details: Vital Signs - Last Taken Temperature 97.6 F 05/16/19 19:54 Pulse Rate 88 05/16/19 19:54 Respiratory Rate 16 05/16/19 19:54 Blood Pressure 114/84 05/16/19 19:54 Pulse Ox 95 05/16/19 19:54 - Eye Eye Exam: No Scleral Icterus - ENT ENT Exam: Mucous Membranes Moist - Respiratory Respiratory Exam: Clear to Auscultation - Bilaterally, Breathing Non Labored - Cardiovascular Cardiovascular Exam: RRR, No Murmur, No Clicks, No Gallops, No Rubs, No JVD - GI/Abdominal GI/Abdominal Exam: Normal Bowel Sounds, Non Tender, Non Distended, Soft, Hepatomegaly - Extremities Extremities Exam: No Clubbing Present, No Edema Present, No Cyanosis Present - Neurological Neurological Exam: Alert, Moves All Extremities Equally, Altered Assessment and Plan - Patient Problems (1) Neoplasm related pain Current Visit: Yes Status: Acute Code(s): G89.3 - Neoplasm related pain (acute) (chronic) (2) Liver metastasis Current Visit: Yes Status: Acute Code(s): C78.7 - Secondary malignant neoplasm of liver and intrahepatic bile duct (3) 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 Current Visit: Yes Status: Acute Code(s): C79.31 - Secondary malignant neoplasm of brain (4) Lung cancer Current Visit: Yes Status: Acute Code(s): C34.90 - Malignant neoplasm of unspecified part of unspecified bronchus or lung Qualifiers: Laterality: left Lung location: lower lobe of lung Qualified Code(s): C34.32 - Malignant neoplasm of lower lobe, left bronchus or lung (5) History of pulmonary embolism Current Visit: Yes Status: Acute Code(s): Z86.711 - Personal history of pulmonary embolism - Assessment / Plan Additional Assessment/Plan Details: terminal lung cancer with brain and liver metastatic disease neoplasm related pain oxycodone to Q4H scheduled and PRN for breakthrough pain/fentanyl patch failed as patient removed not understanding its purpose. placement Sunday at local SNF
[2019-05-17] MEDS ORDERED: oxyCODONE ER 10 MG TAB PO SCH (15:15)
[2019-05-17] MEDS ORDERED: oxyCODONE IR Tab 5 MG TAB PO PRN ×2 (16:01→17:38)
[2019-05-17] MEDS ORDERED: oxyCODONE IR Tab 5 MG TAB PO SCH (19:00)
[2019-05-17] MEDS: oxyCODONE IR Tab 5 MG TAB PO SCH ×2 (19:21→23:31)
[2019-05-18] MEDS: oxyCODONE IR Tab 5 MG TAB PO SCH ×6 (03:29→22:10)
[2019-05-18] MEDS: VENLAFAXINE XR 75 MG CAP PO SCH (10:01)
[2019-05-18] MEDS: Apixaban 5 MG TABLET PO SCH ×2 (10:02→22:09)
--- NOTE | 2019-05-18 12:05 | PDOC(PROG) ---
Date of Service: 05/18/19 Time of Service: 12:00 Interval History: Subjective Patient laying in bed, does not appear in distress. his said that earlier he had some headache and he just received some pain medication. The patient himself is also pointing to his belly. Otherwise no other information can be obtained from him. Objective : Data - Labs CBC and BMP: 05/12/19 16:22 05/12/19 16:22 Objective : Exam - General General Appearance: No Acute Distress, Cooperative - Head Head Exam: Normal Inspection - Eye Eye Exam: Normal Appearance - ENT ENT Exam: Normal Exam - Neck Neck Exam: Normal Inspection - Respiratory Respiratory Exam: Clear to Auscultation - Bilaterally - Cardiovascular Cardiovascular Exam: RRR - GI/Abdominal GI/Abdominal Exam: Normal Bowel Sounds, Non Tender, Non Distended - Rectal Rectal Exam: Deferred - External Exam: Deferred - Extremities Extremities Exam: Normal Inspection - Back Back Exam: Normal Inspection - Psychiatric Psychiatric Exam: Flat Affect Assessment and Plan - Patient Problems (1) Neoplasm related pain Current Visit: Yes Status: Acute Comment: Continue current pain medications. Per my understanding from Dr. Da Silva he is accepted at the [facility] and may be he'll go tomorrow. I will speak with the site planner tomorrow. Code(s): G89.3 - Neoplasm related pain (acute) (chronic) (2) History of pulmonary embolism Current Visit: Yes Status: Acute Comment: He is on eliquis continue. Code(s): Z86.711 - Personal history of pulmonary embolism
[2019-05-18 22:31] VITALS: O2SAT 95
[2019-05-19] MEDS: oxyCODONE IR Tab 5 MG TAB PO SCH ×4 (03:40→17:08)
[2019-05-19 07:06] VITALS: BP 136/92; TEMP 97
[2019-05-19] MEDS: Apixaban 5 MG TABLET PO SCH (10:14)
[2019-05-19] MEDS: VENLAFAXINE XR 75 MG CAP PO SCH (10:14)
[2019-05-19] MEDS ORDERED: LORazepam 2 MG/1 ML VIAL IVP PRN (11:06)
--- NOTE | 2019-05-19 11:07 | PDOC(PROG) ---
Date of Service: 05/19/19 Time of Service: 11:00 Interval History: Subjective Patient is more lethargic, having problem swallowing pills. Had a discussion with the and we decided on comfort care here instead of going to the long-term. Will start the patient on morphine. Objective : Data - Labs CBC and BMP: 05/12/19 16:22 05/12/19 16:22 Objective : Exam - General Additional General Exam Details: patient is lethargic - Head Head Exam: Normal Inspection - Eye Eye Exam: Normal Appearance Assessment and Plan - Patient Problems (1) Neoplasm related pain Current Visit: Yes Status: Acute Comment: We did discuss it with the and decided to keep the patient here on comfort care and we'll start him on morphine drip and Ativan as needed. She agreed. Code(s): G89.3 - Neoplasm related pain (acute) (chronic)
[2019-05-19] MEDS ORDERED: Sodium Chloride 0.9% 1,000 ML PRIMARY IV SCH (11:15)
[2019-05-19] MEDS ORDERED: Morphine Drip 250mg/250ml 250 MG/250 ML PLAST..BAG IV SCH (11:15)
[2019-05-19] MEDS ORDERED: Keys-Morphine Palliative Care ONE (11:38)
[2019-05-19] MEDS: Hypromellose/Glycerin/PEG 400 Ophth Soln 15 ML DROPS EACH EYE SCH ×7 (14:27→23:12)
[2019-05-19] MEDS ORDERED: LIDOCAINE HCL 2 % 10 ML JELLY URO-JECT TOPICAL ONE (19:28)
[2019-05-20] MEDS: Hypromellose/Glycerin/PEG 400 Ophth Soln 15 ML DROPS EACH EYE SCH ×6 (01:58→11:23)
[2019-05-20] MEDS ORDERED: SCOPOLAMINE HYDROBROMIDE 1.5 MG - 1 EACH PATCH TRANSDERM ONE (09:19)
[2019-05-20] MEDS ORDERED: LORazepam 2 MG/1 ML VIAL IVP PRN (11:40)
[2019-05-20 11:47] VITALS: RESP 22
--- NOTE | 2019-05-20 12:23 | DCSUMMARY ---
Hospitalization Summary Admit Date: 05/12/2019 Discharge Date: 05/20/19 Hospital Course: diagnosis 1. Squamous cell carcinoma of the lung with metastasis to the brain and liver, status post chemotherapy and radiation treatment 2. History of bilateral pulmonary embolism 3. History of surgery for metastatic cerebellar tumor Hospital course This is a 58 years old male with medical history significant for history of squamous cell carcinoma of the lung with metastasis to the brain status post craniotomy for cerebellar tumor, history also of radiation treatment to the lungs and treatment with chemotherapy that included keytruda and history of bilateral pulmonary emboli who was sent to the ER from the oncology office in [place] because of progressive memory changes and confusion started a month ago progressively got worse the week before admission. He's been more aggressive with his and there is fluctuation in his behavior. He had multiple CT done in our ER which showed numerous lesions in the liver which were new according to the . Patient was admitted to the hospital who put him on pain medication. We discussed his condition with the his and the daughter. They were not looking at aggressive treatment and after discussion with them the decision was more symptomatic treatment. We could not obtain meaningful information from the patient when he got in because of for his underlying disease. The family initially was for him to go to [facility] for comfort care. However after their assessment the patient started to deteriorate quickly and the decision was made to keep the patient in the hospital for comfort care while he is here. Pain was not controlled well with oral medication which worked first but he started to refuse taking the oral medications he was put on IV drip morphine and Ativan as needed. Patient peacefully the next day. Exam - Vitals Vital Signs: Vital Signs Temperature 97 F Temperature Source Temporal Artery Scan Pulse Rate [Pulse Oximeter 102 Right] Pulse Rate 79 Respiratory Rate 22 Blood Pressure [Right Arm] 136/92 Blood Pressure [Left Arm] 105/68 Blood Pressure 103/83 Pulse Ox 95 Oxygen Delivery Method Room Air Height 5 ft 11 in Weight 140 lb Patient Problems - Patient Problem List (1) Neoplasm related pain Current Visit: Yes Status: Acute Code(s): G89.3 - Neoplasm related pain (acute) (chronic) Category: Medical
== END 2019-05-20 12:15 | disposition expired ==
LOC: ER 15:37 → INTOOBSV 20:27 → MED/SURG 20:27
PROVIDERS: ADMIT Internal Medicine; ATTEND Internal Medicine